=== PATIENT | male | born 1995 | race African-American/Black ===

== ENCOUNTER 2016-07-26 23:19 | Observation (INO) | payer BC ==
[~2016-07-26] VITALS: Ht 172.7 cm; Wt 80.0 kg
[2016-07-26 23:30] VITALS: BP 142/94; PULSE 81; RESP 16; TEMP 97.7; O2SAT 99
--- NOTE | 2016-07-27 00:57 | PD ---
HPI Chief Complaint: General Weakness Time Seen by Provider: 00:48 Travel History International Travel<30 days: No Contact w/Intl Traveler<30days: No Traveled to known affect area: No History of Present Illness HPI 31-year-old male complains of extremity cramping and stiffness and generalized weakness. Patient states that he was drinking alcohol this morning. Patient has history of alcohol consumption daily. Patient states that he has been out of the sun all day today. Patient started having muscular cramping and stiffness and generalized weakness this evening. Patient denies any headache. Patient denies any chest pain or shortness of breath. Patient denies abdominal pain. Patient denies any focal weakness or numbness of extremity. Patient denies any recent injury. PFSH Past Medical History Medical History: Denies Significant Hx Tetanus Vaccination: > 5 Years Influenza Vaccination: No Past Surgical History Surgical History: No Previous Surgery Social History Alcohol Use: Yes (WEEKENDS USUALLY BUT MORE SINCE HERE ON [place]) Tobacco Use: Yes (1 CIG PER WEEK) Substance Use: Yes (MARIJUANA REGULARLY) Allergies-Medications (Allergen,Severity, Reaction): Coded Allergies: No Known Allergies (Unverified , 07/26/16) Reported Meds & Prescriptions Reported Meds & Active Scripts Active No Active Prescriptions or Reported Medications Review of Systems General / Constitutional: No: Fever Eyes: No: Visual changes HENT: No: Headaches Cardiovascular: No: Chest Pain or Discomfort Respiratory: No: Shortness of Breath Gastrointestinal: No: Abdominal Pain Genitourinary: No: Dysuria Musculoskeletal: Positive: Pain Skin: No Rash Neurologic: No: Weakness Psychiatric: No: Depression Endocrine: No: Polydipsia Hematologic/Lymphatic: No: Easy Bruising Physical Exam Narrative GENERAL: Well-nourished, well-developed patient. SKIN: Focused skin assessment warm/dry. HEAD: Normocephalic. EYES: No scleral icterus. No injection or drainage. NECK: Supple, trachea midline. No JVD or lymphadenopathy. CARDIOVASCULAR: Regular rate and rhythm without murmurs, gallops, or rubs. RESPIRATORY: Breath sounds equal bilaterally. No accessory muscle use. GASTROINTESTINAL: Abdomen soft, non-tender, nondistended. MUSCULOSKELETAL: No cyanosis, or edema. BACK: Nontender without obvious deformity. No CVA tenderness. Neurologic exam normal. Data Data Last Documented VS Vital Signs Date Time Temp Pulse Resp B/P Pulse Ox O2 Delivery O2 Flow Rate FiO2 07/26/16 23:30 97.7 81 16 142/94 99 Room Air Orders Sodium Chlor 0.9% 1000 Ml Inj (Ns 1000 M (07/27/16 01:00) Complete Blood Count With Diff (07/27/16 01:25) Basic Metabolic Panel (Bmp) (07/27/16 01:25) Creatine Kinase (Cpk) (07/27/16 01:25) Iv Access Insert/Monitor (07/27/16 01:25) Alcohol (Ethanol) (07/27/16 01:58) Electrocardiogram (07/27/16 ) CKMB (07/27/16 01:58) CKMB% (07/27/16 01:58) Sodium Chlor 0.9% 1000 Ml Inj (Ns 1000 M (07/27/16 03:45) Sodium Chlor 0.9% 1000 Ml Inj (Ns 1000 M (07/27/16 04:15) Labs Laboratory Tests Test 07/27/16 01:58 White Blood Count 10.2 TH/MM3 Red Blood Count 4.96 MIL/MM3 Hemoglobin 15.2 GM/DL Hematocrit 44.7 % Mean Corpuscular Volume 90.2 FL Mean Corpuscular Hemoglobin 30.7 PG Mean Corpuscular Hemoglobin 34.0 % Concent Red Cell Distribution Width 14.1 % Platelet Count 277 TH/MM3 Mean Platelet Volume 9.1 FL Neutrophils (%) (Auto) 69.6 % Lymphocytes (%) (Auto) 22.2 % Monocytes (%) (Auto) 7.0 % Eosinophils (%) (Auto) 0.4 % Basophils (%) (Auto) 0.8 % Neutrophils # (Auto) 7.1 TH/MM3 Lymphocytes # (Auto) 2.3 TH/MM3 Monocytes # (Auto) 0.7 TH/MM3 Eosinophils # (Auto) 0.0 TH/MM3 Basophils # (Auto) 0.1 TH/MM3 CBC Comment DIFF FINAL Differential Comment Sodium Level 138 MEQ/L Potassium Level 4.2 MEQ/L Chloride Level 103 MEQ/L Carbon Dioxide Level 27.0 MEQ/L Anion Gap 8 MEQ/L Blood Urea Nitrogen 12 MG/DL Creatinine 0.89 MG/DL Estimat Glomerular Filtration 131 ML/MIN Rate Random Glucose 76 MG/DL Calcium Level 8.7 MG/DL Total Creatine Kinase 1749 U/L Ethyl Alcohol Level LESS THAN 3 MG/DL [facility] Medical Decision Making Medical Screen Exam Complete: Yes Emergency Medical Condition: Yes Interpretation(s) 4:08 AM. CBC within normal limit. Potassium 4.2. Total CK 1749. Differential Diagnosis Differential diagnosis including alcohol intoxication, rhabdomyolysis, dehydration, electrolyte imbalance, heat exhaustion, heat stroke. Narrative Course 31-year-old male with muscular stiffness and cramping and generalized weakness. Patient has history of EtOH abuse. Patient has been out in the sun all day. Normal saline solution 1 L IV bolus. Repeated normal saline solution 1 L IV bolus. Normal saline solution 1 50 cc an hour. Diagnosis Primary Impression: Rhabdomyolysis Qualified Code: M62.82 - Non-traumatic rhabdomyolysis Admitting Information Admitting Physician Requests: Observation Scripts No Active Prescriptions or Reported Meds Augustine Obando MD July 27, 2016 00:57
[2016-07-27] MEDS ORDERED: SODIUM CHLOR 0.9% 1000 ML INJ 1,000 ML IV ONE ×2 (01:00→03:45)
[2016-07-27 02:19] LABS: AUTOMATED NEUTROPHIL # 7.1 TH/MM3 (1.8-7.7); BASOPHIL # 0.1 TH/MM3 (0-0.2); BASOPHIL % 0.8 % (0.0-2.0); EOSINOPHIL % 0.4 % (0.0-4.0); HEMATOCRIT 44.7 % (39.0-51.0); HEMO FLAGS DIFF FINAL; LYMPH % 22.2 % (9.0-44.0); LYMPHOCYTE # 2.3 TH/MM3 (1.0-4.8); MEAN CELL VOLUME 90.2 FL (80.0-100.0); MEAN CORPUSCULAR HEMOGLOBIN 30.7 PG (27.0-34.0); NEUT % 69.6 % (16.0-70.0); PLATELET COUNT 277 TH/MM3 (150-450); RED BLOOD COUNT 4.96 MIL/MM3 (4.50-5.90); RED CELL DISTRIBUTION WIDTH 14.1 % (11.6-17.2); WHITE BLOOD COUNT 10.2 TH/MM3 (4.0-11.0)
[2016-07-27 04:02] LABS: ANION GAP 8 MEQ/L (5-15); GLOMERULAR FILTRATION RATE 131 ML/MIN (>89)
[2016-07-27 04:04] LABS: BLOOD UREA NITROGEN 12 MG/DL (7-18); CHLORIDE 103 MEQ/L (98-107); POTASSIUM 4.2 MEQ/L (3.5-5.1); SODIUM (NA) 138 MEQ/L (136-145)
[2016-07-27 04:10] LABS: CREATINE KINASE 1226 U/L (39-308)
[2016-07-27] MEDS ORDERED: NALOXONE HCL 0.4 MG/ML AMP IV PRN (04:30)
[2016-07-27] MEDS ORDERED: SODIUM CHLORIDE 0.9% FLUSH 10 ML FLUSH IV FLUSH PRN (04:30)
[2016-07-27 05:30] VITALS: BP 133/85; PULSE 84; RESP 18; TEMP 98.4; O2SAT 100
[2016-07-27] MEDS: SODIUM CHLOR 0.9% 1000 ML INJ 1,000 ML IV SCH ×2 (05:32→12:17)
[2016-07-27 05:46] VITALS: BP 135/72; PULSE 61; RESP 18; TEMP 98.4; O2SAT 97
--- NOTE | 2016-07-27 07:35 | EKG ---
Date Performed: 07/27/2016 Time Performed: 05:26:44 PTAGE: 21 years EKG: Sinus rhythm WITH MARKED SINUS ARRHYTHMIA WITH SHORT [place] INTERVAL Nonspecific T wave changes BORDERLINE ECG NO PREVIOUS TRACING DOCTOR: Marcelino Coleman Interpretating Date/Time 07/27/2016 07:33:25
[2016-07-27 08:00] VITALS: PULSE 67
[2016-07-27 08:30] VITALS: BP 127/64; PULSE 90; RESP 18; TEMP 98.7; O2SAT 84
[2016-07-27] MEDS ORDERED: SODIUM CHLORIDE 0.9% FLUSH 10 ML FLUSH IV FLUSH SCH (09:00)
[2016-07-27 12:40] LABS: CKMB 2.5 NG/ML (0.5-3.6)
--- NOTE | 2016-07-27 16:13 | HHI.HP ---
[facility] Ad[facility] Diagnosis rhabdomyolysis Diagnoses: Travel History International Travel<30 Days: No Contact w/Intl Traveler <30 Da: No Traveled to Known Affected Are: No History of Present Illness Patient seen this morning around 9 AM 21-year-old male from [place] who is down here on vacation for the past 4 days with friends, during which he has been swimming (he does not swim when he is not on medication), "drinking and partying hard". He does report running on the beach as part of a competition on 07/26. He presents to the ER with onset of diffuse, whole body dull muscle aches, as well as lethargy starting yesterday evening after waking up from a nap. He reports spending all day at the beach for several days. He denies any chest pain or shortness of breath. He does report drinking very heavily, unknown amount of alcohol for 4 days straight. He reports a history of binge drinking, however not regular use. Denies any history of withdrawal in the past. He does say he had some nausea without vomiting yesterday morning, did not eat all day, however nausea has improved now. He does report a raspy voice over the past day without a sore throat; he says this is secondary to screaming/yelling over the past several days. Review of Systems Performed and negative except for history of present illness and past medical history. Past Family Social History Past Medical History She denies any past medical history Past Surgical History Patient denies any surgical history Allergies: Coded Allergies: No Known Allergies (Unverified , 07/26/16) Family History Patient denies any family history of muscle disorder. Patient does report his mother has diabetes. His father is estranged Social History Patient does not smoke tobacco. Patient reports binge drinking on the weekends , however denies any regular use, denies any withdrawal in the past. Patient does report intermittent marijuana use. Denies any cocaine or IV drug use. Physical Exam Vital Signs Vital Signs Date Time Temp Pulse Resp B/P Pulse Ox O2 Delivery O2 Flow Rate FiO2 07/27/16 08:30 98.7 90 18 127/64 84 5/12/17 08:00 67 07/27/16 05:46 98.4 61 18 135/72 97 07/27/16 05:30 98.4 84 18 133/85 100 Room Air 07/26/16 23:30 97.7 81 16 142/94 99 Room Air Physical Exam GENERAL: This is a well-nourished, well-developed patient, in no apparent distress. Alert and oriented 3. He does have a raspy voice. SKIN: No rashes, ecchymoses or lesions. Cool and dry. HEAD: Atraumatic. Normocephalic. No temporal or scalp tenderness. EYES: Pupils equal round and reactive. Extraocular motions intact. No scleral icterus. No injection or drainage. ENT: Nose without bleeding, purulent drainage or septal hematoma. Throat without erythema, tonsillar hypertrophy or exudate. Uvula midline. Airway patent. NECK: Trachea midline. No JVD or lymphadenopathy. Supple, nontender, no meningeal signs. CARDIOVASCULAR: Regular rate and rhythm without murmurs, gallops, or rubs. RESPIRATORY: Clear to auscultation. Breath sounds equal bilaterally. No wheezes , rales, or rhonchi. GASTROINTESTINAL: Abdomen soft, non-tender, nondistended. No hepato-splenomegaly , or palpable masses. No guarding. MUSCULOSKELETAL: Extremities without clubbing, cyanosis, or edema. No joint tenderness, effusion, or edema noted. No calf tenderness. Negative Homans sign bilaterally. NEUROLOGICAL: Awake and alert. Cranial nerves II through XII intact. Motor and sensory grossly within normal limits. Five out of 5 muscle strength in all muscle groups. Normal speech. Laboratory Laboratory Tests Test 07/27/16 07/27/16 01:58 10:39 White Blood Count 10.2 Red Blood Count 4.96 Hemoglobin 15.2 Hematocrit 44.7 Mean Corpuscular Volume 90.2 Mean Corpuscular Hemoglobin 30.7 Mean Corpuscular Hemoglobin 34.0 Concent Red Cell Distribution Width 14.1 Platelet Count 277 Mean Platelet Volume 9.1 Neutrophils (%) (Auto) 69.6 Lymphocytes (%) (Auto) 22.2 Monocytes (%) (Auto) 7.0 Eosinophils (%) (Auto) 0.4 Basophils (%) (Auto) 0.8 Neutrophils # (Auto) 7.1 Lymphocytes # (Auto) 2.3 Monocytes # (Auto) 0.7 Eosinophils # (Auto) 0.0 Basophils # (Auto) 0.1 CBC Comment DIFF FINAL Differential Comment Sodium Level 138 Potassium Level 4.2 Chloride Level 103 Carbon Dioxide Level 27.0 Anion Gap 8 Blood Urea Nitrogen 12 Creatinine 0.89 Estimat Glomerular Filtration 131 Rate Random Glucose 76 Calcium Level 8.7 Total Creatine Kinase 1226 991 Creatine Kinase MB 4.0 2.5 Creatine Kinase MB % 0.3 0.3 Ethyl Alcohol Level LESS THAN 3 Result Diagram: 07/27/16 0158 07/27/16 0158 Assessment and Plan Assessment and Plan //Rhabdomyolysis //Diffuse muscle pain. Likely secondary to swimming and hard partying, heavy drinking over the past several days. -He seems to have been hung over yesterday morning, and as the alcohol wore off yesterday afternoon, the pain hit. -Continue IV hydration. Have recommended Gatorade. Have also recommended alcohol cessation. -Follow up repeat CK. //Alcohol abuse. //Binge drinking disorder -Counseling provided. Recommend complete cessation. Recommend follow-up with primary care in [place]. Patient conveys understanding. Agrees to do so. //Marijuana abuse. Counseling provided. Recommend complete cessation. Patient conveys understanding. Code Status Full code Discussed Condition With Patient, nurse Gerardo Lamb MD July 27, 2016 16:13
== END 2016-07-27 14:14 | disposition home or self-care (01) ==
LOC: NEPC 23:19 → NEDA 07-27 04:31 → NEPFCDU 07-27 05:35
PROVIDERS: ADMIT Internal Medicine; ATTEND Internal Medicine
DX: M62.82 Rhabdomyolysis (principal); F10.10 Alcohol abuse, uncomplicated; F12.10 Cannabis abuse, uncomplicated; F17.210 Nicotine dependence, cigarettes, uncomplicated
CPT/HCPCS: 80048; 80307; 82550; 82552; 85025; 93005; 96374; 96376; 99285; G0378; J7030